=== PATIENT | male | born 1970 | race Hispanic/Latino ===

== ENCOUNTER 2022-09-19 14:06 | Emergency (ER) | payer SELFPAY ==
[2022-09-19 14:16] VITALS: BP 127/77; PULSE 67; RESP 16; TEMP 36.7; O2SAT 99
--- NOTE | 2022-09-19 14:26 | ED.EYEPROB ---
HPI - Eye Problem General Chief complaint: Eye Problems Stated complaint: Left Eye Irritation Time Seen by Provider: 09/19/22 14:26 Source: patient Mode of arrival: ambulatory Limitations: no limitations History of Present Illness HPI Narrative: 52 yo M presents with c/o redness to inner corner of L eye for 5 days. States he went to the gym that morning and then to work and his coworkers told him about redness. Denies pain, drainage, vision change. all systems reviewed and negative except as noted above. Related Data Allergies Allergy/AdvReac Type Severity Reaction Status Date / Time No Known Allergies Allergy Verified 09/19/22 14:32 Review of Systems Review of Systems: CONSTITUTIONAL: Denies fever, chills, or sweats. EYES: Denies visual changes or discharge. Reports redness to L eye. ENT: Denies rhinorrhea, congestion, sore throat, or otalgia. CARDIOVASCULAR: Denies chest pain, palpitations, or edema. RESPIRATORY: Denies cough or dyspnea. GASTROINTESTINAL: Denies abdominal pain, nausea, vomiting, or diarrhea. GENITOURINARY: Denies dysuria or hematuria. SKIN: Denies rash or itching. MUSCULOSKELETAL: Denies back pain, joint pain, or myalgia. NEUROLOGIC: Denies headache, numbness, or weakness. PSYCHIATRIC: Denies anxiety or depression. All other systems reviewed are negative, except as documented in HPI. PMFSH Comments At time of signature, agree with nursing past medical, surgical, social and family history. There is no relevant family history pertinent to the presenting complaint. Exam Narrative: GENERAL: This is a well-nourished, well-developed patient, in no apparent distress. HEAD: normocephalic, atraumatic. EYES: PERRL.subconjunctival hemorrhage noted to inner corner of L eye. Vision is grossly intact. EARS: External ears normal NOSE: External nose normal NECK: Neck supple, non-tender without lymphadenopathy, masses or thyromegaly. CARDIOVASCULAR: Regular rate and rhythm without murmurs, gallops, or rubs. RESPIRATORY: Clear to auscultation. Breath sounds equal bilaterally. No wheezes, rales, or rhonchi. SKIN: warm, Dry, intact with no suspicious lesions or rash, good texture and turgor. NEURO: awake, alert, and oriented to person, place and time. There were no obvious focal neurologic abnormalities. EXTREMITIES: No joint tenderness, effusion, or edema noted. Course Course Level of Care: Express Care Visit Vital Signs Vital signs: Vital Signs Temperature 36.7 C 09/19/22 14:16 Pulse Rate 67 09/19/22 14:16 Respiratory Rate 16 09/19/22 14:16 Blood Pressure 127/77 09/19/22 14:16 Pulse Oximetry 99 09/19/22 14:16 Oxygen Delivery Room Air 09/19/22 14:16 Temperature 36.7 C 09/19/22 14:16 Pulse Rate 67 09/19/22 14:16 Respiratory Rate 16 09/19/22 14:16 Blood Pressure 127/77 09/19/22 14:16 Pulse Oximetry 99 09/19/22 14:16 Oxygen Delivery Room Air 09/19/22 14:16 Reviewed MDM - Eye Problem MDM Narrative Medical decision making narrative: Patient is aware of diagnosis, understands and agrees to treatment plan. Anticipatory guidance given. Patient agrees to follow-up as directed and is aware of reasons to seek care at the emergency department. Portions of this record may have been created with voice recognition software Differential Diagnosis Differential diagnosis: Likely subconjunctival hemorrhage Discharge Plan Discharge Clinical Impression: Subconjunctival hemorrhage of left eye Patient Disposition: Home, Self-Care Condition: Stable Instructions: Subconjunctival Hemorrhage (ED) Additional Instructions: Use an over the counter saline eyedrop to treat irritation or dryness as needed. Hemorrhage will heal over the next few weeks. If not improving see an eyeglass frame truer. Follow-up/Referrals: PHYSICIAN,TOPOLOGY PROFESSOR [Primary Care Provider] - Time of Disposition: 14:31
== END 2022-09-19 14:34 | disposition home or self-care (01) ==
PROVIDERS: Emergency Provider Nurse Practitioner Family
DX: H11.32 Conjunctival hemorrhage, left eye (principal)
CPT/HCPCS: 99202; G0463